=== PATIENT | female | born 1940 | race Caucasian/White ===

== ENCOUNTER → 2017-07-19 | Outpatient (CLI) | payer MEDICARE ==
[~2017-07-19] MED LIST: IOHEXOL 240 MG/ML 50ML VIAL. ONE; IOHEXOL 300 MG/ML 75 ML VIAL. IV ONE
[2017-07-19 09:22] LABS: CREATININE 0.9 mg/dL (0.6-1.0); GFR 60.7
--- NOTE | 2017-07-19 10:45 | RAD ---
Indication microscopic hematuria. Axial images of the abdomen and pelvis were obtained. Both IV and oral contrast were administered. Approximately 75 cc of Omnipaque 300 was administered intravenously. No prior imaging is available. There are 2 small pulmonary nodules peripherally in the right lower lobe, image 11 series 2. Each measures approximately 1 to 2 mm. These are probably incidental but if the patient is at risk for pulmonary malignancy follow-up imaging, along the lines of the Fleischner criteria, should be considered. An acute or definite significant finding at either lung base is not seen. There are occasional low density masses in the liver the largest measuring 2 cm. These are likely incidental and reflect small cysts. A definite significant finding in the liver is not seen. There is a small hiatus hernia. The gallbladder appears grossly normal. No splenic pathology is seen. The pancreas is largely atrophied. No adrenal or renal pathology is seen. An acute or definite significant finding in the abdomen is not seen. In the pelvis there is a small mass at the right trigone of the bladder measuring approximately 9 mm in greatest dimension. Given the clinical history (microscopic hematuria) a primary bladder neoplasm would be a leading consideration. Cystoscopy should be considered. An additional finding in the pelvis is not seen. There is scoliosis. An hemangioma is noted at T10. There are degenerative changes in the lumbar spine IMPRESSION: 9 mm bladder mass is suspect. Primary neoplasm is a leading consideration. Cystoscopy should be considered. 2 small pulmonary nodules in the right lower lobe. These are probably incidental but follow-up imaging along the lines of the Fleischner criteria should be considered. Nodules detected incidentally at non-screening CT Nodule size (mm) less than or equal to 4 Low Risk patients- no follow-up needed High Risk patients- follow-up at 12 months and if no change, no further imaging needed. Nodule size > 4-6 mm Low risk patients- follow- up at 12 months and if no change, no further imaging needed High risk patients- initial follow-up CT at 6-12 months and then at 18-24 months if no change. Nodule Size > 6-8 mm Low risk patients- initial follow-up CT at 6-12 months and then at 18-24 months if no change. High risk patients- initial follow- up CT at 3-6 months and then at 9-12 months if no change, Nodule Size >8 mm Either low or high risk patients: Follow-up CT at around 3, 9 and 24 [address], PET, and/or biopsy Note: newly detected indeterminate nodule in person 35 years of age or older. Low risk patients- minimal or absent history of smoking and/or other known risk factors. High risk patients- history of smoking or of other known risk factors. PQRS Compliance Statement: One or more of the following individualized dose reduction techniques were utilized for this examination: 1. Automated exposure control 2. Adjustment of the mA and/or kV according to patient size 3. Use of iterative reconstruction technique
== END | disposition home or self-care (01) ==
LOC: CT 08:20
PROVIDERS: ATTEND Family Medicine
DX: R31.1 Benign essential microscopic hematuria (principal); R91.8 Other nonspecific abnormal finding of lung field; K76.89 Other specified diseases of liver; K44.9 Diaphragmatic hernia without obstruction or gangrene; K86.89 Other specified diseases of pancreas; M41.84 Other forms of scoliosis, thoracic region; M47.896 Other spondylosis, lumbar region
CPT/HCPCS: 36415; 74177; 82565; Q9966; Q9967